=== PATIENT | female | born 1990 | race Two or more races ===

== ENCOUNTER 2021-02-18 04:37 | Day surgery (SDC) | payer OTHER ==
[2021-02-14 15:32] VITALS: BMI 22.6
[2021-02-18] MEDS ORDERED: ROCURONIUM BROMIDE 50 MG/5 ML SYRINGE ONE ×2 (07:10→09:36)
[2021-02-18] MEDS ORDERED: PROPOFOL 20 ML ONE ×2 (07:10→07:11)
[2021-02-18] MEDS ORDERED: SUCCINYLCHOLINE CHLORIDE 200 MG/10 ML SYRINGE ONE (07:10)
[2021-02-18] MEDS ORDERED: ACETAMINOPHEN INJECTION 100 ML IVPB ONE (07:15)
[2021-02-18] MEDS ORDERED: BUPIVACAINE HCL/PF 0.5% (5MG/ML) 10 ML VIAL ONE (07:35)
[2021-02-18] MEDS ORDERED: BUPIVACAINE LIPOSOME/PF (EXPAREL) 266 MG/20 ML VIAL ONE (07:35)
[2021-02-18] MEDS ORDERED: MIDAZOLAM HCL 2 MG/2 ML SINGLE DOSE VIAL ONE ×2 (07:37)
[2021-02-18] MEDS ORDERED: METHYLENE BLUE 50 MG/10 ML AMPUL ONE (08:20)
[2021-02-18] MEDS ORDERED: ceFAZolin SODIUM 1 GM VIAL IVPB ONE (08:25)
[2021-02-18] MEDS ORDERED: KETAMINE HCL 200 MG/20 ML VIAL ONE (08:29)
[2021-02-18] MEDS ORDERED: LIDOCAINE HCL/PF 2% SDV 5ML VIAL ONE (08:46)
[2021-02-18] MEDS ORDERED: ePHEDrine SULFATE 50 MG/1 ML AMPULE ONE (09:38)
[2021-02-18] MEDS ORDERED: NEOSTIGMINE METHYLSULFATE 0.5 MG/ML - 10 ML MDV ONE (10:16)
[2021-02-18] MEDS ORDERED: GLYCOPYRROLATE 0.2 MG/1 ML VIAL ONE (10:16)
[2021-02-18] MEDS ORDERED: ceFAZolin SODIUM 1 GM VIAL ONE (10:17)
[2021-02-18] MEDS ORDERED: LABETALOL HCL 5 MG/1 ML (100MG/20 ML VIAL) ONE (10:17)
[2021-02-18] MEDS ORDERED: MINERAL OIL/PETROLATUM,WHITE 3.5 GM TUBE ONE (10:17)
[2021-02-18] MEDS ORDERED: DESFLURANE GAS 240 ML BOTTLE IH ONE (10:36)
[2021-02-18] MEDS ORDERED: ESMOLOL HCL 100,000 MCG/10 ML VIAL ONE (10:39)
[2021-02-18] MEDS ORDERED: PROMETHAZINE HCL 25 MG/1 ML VIAL IVPUSH PRN (11:06)
[2021-02-18] MEDS ORDERED: LACTATED RINGERS SOLUTION 1,000 ML IV SCH (11:15)
[2021-02-18] MEDS ORDERED: IBUPROFEN 400 MG TABLET (FP) PO PRN (11:34)
[2021-02-18] MEDS: ACETAMINOPHEN 325 MG TABLET (FP) PO PRN ×2 (13:42→17:42)
[2021-02-18] MEDS: oxyCODONE HCL 5 MG TABLET PO PRN (17:42)
[2021-02-18] MEDS ORDERED: IBUPROFEN 600 MG TABLET (FP) PO PRN (21:39)
[2021-02-19] MEDS: oxyCODONE HCL 5 MG TABLET PO PRN ×2 (02:06→08:43)
[2021-02-19] MEDS: ACETAMINOPHEN 325 MG TABLET (FP) PO PRN (02:06)
[2021-02-19 09:30] VITALS: BP 113/63; PULSE 69; TEMP 98.1
== END 2021-02-19 11:15 | disposition home or self-care (01) ==
LOC: JASUSAT 04:37 → EDSTATUS 08:00 → J3W 14:07 → JASUSAT 02-19 11:15
PROVIDERS: ATTEND Obstetrics & Gynecology Maternal & Fetal Medicine
PROC: 3E1P38X Irrigation of Female Reproductive using Irrigating Substance, Percutaneous Approach, Diagnostic (ICD-10-PCS; 2021-02-18)
PROC: 0UB20ZZ Excision of Bilateral Ovaries, Open Approach (ICD-10-PCS; principal; 2021-02-18 08:00)
DX: N94.10 Unspecified dyspareunia (principal); N80.9 Endometriosis, unspecified; N83.201 Unspecified ovarian cyst, right side
CPT/HCPCS: 81025; 94760; J0131; Q9968